=== PATIENT | female | born 1990 | race Caucasian/White ===

== ENCOUNTER 2016-09-27 14:33 | Emergency (ER) | payer OTHER ==
[2016-09-27] MEDS ORDERED: DEXAMETHASONE SOD PHOS INJ 10 MG/1 ML VIAL IM ONE (16:15)
[2016-09-27] MEDS ORDERED: KETOROLAC TROMETHAMINE 60 MG/2 ML SDV IM ONE (16:15)
[2016-09-27] MEDS ORDERED: METHYLPREDNISOLONE ACETATE INJ 40 MG/1 ML ML IM ONE (16:15)
--- NOTE | 2016-09-27 16:15 | ER Document Report ---
ED Fall - General Chief Complaint: Fall Stated Complaint: FALL,BACK,LEG,HIP PAIN,HEAD INJURY Time Seen by Provider: 09/27/16 15:14 Mode of Arrival: Ambulatory Information source: Patient - This potentially may be a duplicate chart. This is a 25-year-old female who said she had a fall from a standing level while walking out of a freezer at work she struck her head on the freezer door and has discomfort to her left lateral back radiating down her leg. TRAVEL OUTSIDE OF THE [place] IN LAST 30 DAYS: No Past Medical History - General Information source: Patient - Social History Smoking Status: Current Every Day Smoker Family History: None Patient has suicidal ideation: No Patient has homicidal ideation: No Renal/ Medical History: Denies: Hx Peritoneal Dialysis Review of Systems - Review of Systems Constitutional: No symptoms reported EENT: No symptoms reported Cardiovascular: No symptoms reported Respiratory: No symptoms reported Gastrointestinal: No symptoms reported Genitourinary: No symptoms reported Female Genitourinary: No symptoms reported Musculoskeletal: No symptoms reported Skin: No symptoms reported Hematologic/Lymphatic: No symptoms reported Neurological/Psychological: No symptoms reported Physical Exam - Vital signs Vitals: Temp Pulse Resp BP Pulse Ox 98.3 F 76 16 103/77 99 09/27/16 14:39 09/27/16 14:39 09/27/16 14:39 09/27/16 14:39 09/27/16 14:39 Interpretation: Normal - General General appearance: Appears well, Alert - HEENT Head: Normocephalic, Atraumatic Eyes: Normal Pupils: PERRL - Respiratory Respiratory status: No respiratory distress Chest status: Nontender Breath sounds: Normal Chest palpation: Normal - Cardiovascular Rhythm: Regular Heart sounds: Normal auscultation Murmur: No - Abdominal Inspection: Normal Distension: No distension Bowel sounds: Normal Tenderness: Nontender Organomegaly: No organomegaly - Back Back: Normal, Nontender - Extremities General upper extremity: Normal inspection, Nontender, Normal color, Normal ROM , Normal temperature General lower extremity: Normal inspection, Nontender, Normal color, Normal ROM , Normal temperature, Normal weight bearing. No: Rai's sign - Neurological Neuro grossly intact: Yes Cognition: Normal Orientation: AAOx4 [place] Coma Scale Eye Opening: Spontaneous [place] Coma Scale Verbal: Oriented [place] Coma Scale Motor: Obeys Commands [place] Coma Scale Total: 15 Speech: Normal Motor strength normal: LUE, RUE, LLE, RLE Sensory: Normal - Psychological Associated symptoms: Normal affect, Normal mood - Skin Skin Temperature: Warm Skin Moisture: Dry Skin Color: Normal Course - Re-evaluation Re-evalutation: 09/27/16 16:13 Again it should be noted that this may be a duplicate chart. This is a 25-year-old female who fell striking her head on a freezer door and then on the ground. She had no loss of consciousness no nausea no vomiting C2 through 12 are intact she is awake alert and oriented to person place time. She has no hematoma no crepitus to the back of her skull. Does have discomfort laterally to her neck no step-off no crepitus to palpation of the midline. States that she has discomfort left lateral lower back again lateral to midline no step-off no crepitus no numbness no tingling no loss of bowel or bladder function or saddle anesthesia ambulatory with a rhythmic and steady gait. States that the pain is lateral to her lumbar area with radiation to her hip down the lateral aspect of her left leg stopping at the knee which was very consistent with the sciatica she had when she was . - Vital Signs Vital signs: Temp Pulse Resp BP Pulse Ox 98.3 F 76 16 103/77 99 09/27/16 14:39 09/27/16 14:39 09/27/16 14:39 09/27/16 14:39 09/27/16 14:39 Discharge - Discharge Clinical Impression: Sciatica Qualifiers: Laterality: left Qualified Code(s): M54.32 - Sciatica, left side Condition: Good Disposition: HOME, SELF-CARE Additional Instructions: Sciatica Your symptoms suggest "sciatica." The pain of sciatica typically radiates down the leg. Numbness in the foot or calf may also occur. Sciatica is caused by irritation of the sciatic nerve or its branches. The irritation can be due to a herniated disk in the spine, swelling and inflammation in the muscles surrounding the sciatic nerve, or direct injury of the nerve itself. Most cases of sciatica will resolve with medical treatment. Bed rest is usually recommended initially. Surgery is only necessary when the condition will not improve with rest and antiinflammatory medication. Muscle relaxers are often given if muscle soreness is present. A CAT scan of the back may be performed if a herniated disk is suspected. Re-examination is necessary if you develop increasing numbness, localized weakness in the foot or ankle, or if the pain does not respond to rest. Follow-up with private doctor in 1 to 2 days for final radiology readings please return to the emergency room for any change worsening condition. Follow up with private M.D. for all other routine health care needs. Prescriptions: Tramadol HCl [Ultram 50 mg Tablet] 50 mg PO Q4HP PRN #60 tab PRN Reason: Methocarbamol [Robaxin 750 mg Tablet] 750 mg PO Q4 #40 tablet Naproxen Sodium [Naproxen Sodium ER] 500 mg PO Q12 PRN #20 tablet.sa PRN Reason:
[2016-09-27 17:17] VITALS: BP 98/46
== END 2016-09-27 17:06 | disposition home or self-care (01) ==
LOC: ER 14:33
DX: M54.32 Sciatica, left side (principal); S09.90XA Unspecified injury of head, initial encounter; M54.9 Dorsalgia, unspecified; M25.559 Pain in unspecified hip; W19.XXXA Unspecified fall, initial encounter
CPT/HCPCS: 99283; 96372; J1885; J1020; J1100